=== PATIENT | female | born 1985 | race Hispanic/Latino ===

== ENCOUNTER 2018-04-22 15:09 | Emergency (ER) | payer OTHER ==
[2018-04-22 15:28] VITALS: BP 129/82; PULSE 76; RESP 16; TEMP 98.3; O2SAT 100
--- NOTE | 2018-04-22 17:30 | ED PDOC ---
Lower Extremity Pain/Injury Time Seen by Provider: 04/22/18 15:39 Chief Complaint (Nursing): Lower Extremity Problem/Injury Chief Complaint (Provider): Right lateral foot pain x 5 days History Per: Patient History/Exam Limitations: no limitations Onset/Duration Of Symptoms: Days Current Symptoms Are (Timing): Still Present Severity: Moderate Pain Scale Rating Of: 6 Additional Complaint(s): 32 yo female with history of TOS presents for evaluation of right foot pain. PT was on vacation and twisted her right foot. Pt reports lateral side foot pain. PT states that she got an bradley wrap and continued to walk on vacation until she returned this morning. No swelling today but states it was swollen initially. Pt has been taking tylenol for pain. Pt does not want anything in the ER. Past Medical History Reviewed: Historical Data, Nursing Documentation, Vital Signs Vital Signs: Last Vital Signs Temp 98.3 F 04/22/18 15:26 Pulse 76 04/22/18 15:26 Resp 16 04/22/18 15:26 BP 129/82 04/22/18 15:26 Pulse Ox 100 04/22/18 15:26 - Medical History PMH: No Chronic Diseases - Surgical History Surgical History: No Surg Hx - Family History Family History: States: No Known Family Hx - Living Arrangements Living Arrangements: With Family - Allergies Allergies/Adverse Reactions: Allergies Allergy/AdvReac Type Severity Reaction Status Date / Time No Known Allergies Allergy Verified 04/22/18 15:26 Review of Systems ROS Statement: Except As Marked, All Systems Reviewed And Found Negative Constitutional: Negative for: Fever, Chills Musculoskeletal: Positive for: Foot Pain Skin: Negative for: Bruising Physical Exam - Reviewed Nursing Documentation Reviewed: Yes Vital Signs Reviewed: Yes - Physical Exam Appears: Positive for: Well, Non-toxic, No Acute Distress Head Exam: Positive for: ATRAUMATIC, NORMAL INSPECTION, NORMOCEPHALIC Skin: Positive for: Normal Color (No erythema, no ecchymosis on the foot ), Warm , DRY Eye Exam: Positive for: Normal appearance ENT: Positive for: Normal ENT Inspection Neck: Positive for: Normal Respiratory: Negative for: Accessory Muscle Use, Respiratory Distress Pulses-Dorsalis Pedis (R): 2+ Pulses-Post. Tibialis (R): 2+ Back: Positive for: Normal Inspection Extremity: Positive for: Normal ROM, Tenderness (Lateral foot, 5th metatarsal on the right foot ). Negative for: Deformity, Swelling Neurologic/Psych: Positive for: Alert - ECG O2 Sat by Pulse Oximetry: 100 Pulse Ox Interpretation: Normal Medical Decision Making Medical Decision Making: Possible fracture 5th metatarsal. Podiatry consult completed . Disposition - Clinical Impression Clinical Impression: Foot injury - Patient ED Disposition Is Patient to be Admitted: No Counseled Patient/Family Regarding: Diagnosis, Need For Followup - Disposition Referrals: Cindi Hendricks DPM [Staff Provider] - Disposition: Routine/Home Disposition Time: 17:27 Condition: GOOD Instructions: Foot Sprain (DC)
--- NOTE | 2018-04-22 17:55 | RAD ---
Date of service: 04/22/2018 PROCEDURE: Right Foot Radiographs. HISTORY: pain, twisted foot 5 days ago COMPARISON: None. FINDINGS: BONES: No interval acute cardiopulmonary disease appreciated. JOINTS: Normal. SOFT TISSUES: Normal. OTHER FINDINGS: None. IMPRESSION: Unremarkable right foot radiographs.
--- NOTE | 2018-04-22 18:24 | CP.PCM.CON ---
History of Present Illness - History of Present Illness History of Present Illness: Podiatry consult note for Dr. Hendricks, 32 yo female with history of TOS was seen in the ED for pain in the right foot. Patient is AAO x3 and in no acute distress. Patient states she had twisted her right foot inwards while on vacation in [place] 5 days ago. Patient rates her pain as minimal to moderate. Patient states it was initially very swollen, and has been icing and elevating right lower extremity. Pt states swelling has improved however pain has remained about the same. States she takes tylenol every 4-6 hours. States she had wrapped the right foot with FRANCISCO JAVIER bandage. Patient states she continued to walk on it after the injury. Denies any other pedal complains. Denies f/n/v/sob. Medical history: Thoracic outlet syndrome, and hyperlipidemia Surgical history: right shoulder surgery Allergies: NKFDA Social history: denies smoking, occasional drinker, denies recreational drugs. Past Patient History - Past Social History Smoking Status: Never Smoked - MUSCULOSKELETAL/RHEUMATOLOGICAL Other/Comment: THORACIC OUTLET SYNDROME, HERNIATIONS C3-C4, COLLAR BONE CYST - PSYCHIATRIC Hx Substance Use: No - SURGICAL HISTORY Hx Surgeries: Yes Other/Comment: CYST REMOVAL- COLLAR BONE, 3 RIGHT SHOULDER SURGERY - ANESTHESIA Hx Anesthesia: Yes Hx Anesthesia Reactions: No Hx Malignant Hyperthermia: No Meds Allergies/Adverse Reactions: Allergies Allergy/AdvReac Type Severity Reaction Status Date / Time No Known Allergies Allergy Verified 04/22/18 15:26 Physical Exam - Constitutional Appears: Well, Non-toxic, No Acute Distress - Head Exam Head Exam: ATRAUMATIC, NORMOCEPHALIC - Extremities Exam Additional comments: Right lower extremity exam: vascular: DP/PT 2/4, CFT <3 secs x5, temperature gradient warm to warm from proximal leg to toes, no edema or erythema noted Derm: no open lesions, no ecchymosis, no edema, no erythema noted, no clinical signs of infection Neuro: [facility]: pain on palpation to the base of the fifth metatarsal; no pain on palpation to the insertion of achilles tendon, no pain on palpation to the ankle joint, medial or lateral malleolus, no pain with calf squeeze, pain along the medial band of plantar fascia, pain with STJ Active and passive ROM, minimal pain with dorsiflexion and plantarflexion of the ankle joint. - Neurological Exam Neurological exam: Alert, Oriented x3 - Psychiatric Exam Psychiatric exam: Normal Affect, Normal Mood - Skin Skin Exam: Normal Color Results - Vital Signs Recent Vital Signs: Last Vital Signs Temp 98.3 F 04/22/18 15:26 Pulse 76 04/22/18 15:26 Resp 16 04/22/18 15:26 BP 129/82 04/22/18 15:26 Pulse Ox 100 04/22/18 17:34 Assessment & Plan - Assessment and Plan (Free Text) Assessment: 32 yo female with TOS and hyperlipidemia seen in the ED for pain at the base of the right fifth metatarsal; hairline type fracture of the base of the right fifth metartasal. Plan: Patient seen and evaluated History and plan discussed in detail with the attending, Dr. Hendricks Chart and x-rays reviewed Right foot x-ray revealed a hairline fracture of the base of right fifth metatarsal, no displacement no dislocation noted. Educated patient on the etiology of the fracture and conservative treatment Right foot wrapped with FRANCISCO JAVIER bandage Surgical shoe dispensed Crutches dispensed; patient crutch trained Patient to remain NWB to the right lower extremity Patient to take OTC tylenol for pain prn Patients question and concerns answered Patient advised to follow up with Dr. Hendricks in her office Thank you for the consult.
== END 2018-04-22 17:43 | disposition home or self-care (01) ==
LOC: H.ER 15:09
DX: S99.921A Unspecified injury of right foot, initial encounter (principal); X50.9XXA Other and unspecified overexertion or strenuous movements or postures, initial encounter; Y92.89 Other specified places as the place of occurrence of the external cause; E78.5 Hyperlipidemia, unspecified

== ENCOUNTER 2018-11-23 10:03 | Emergency (ER) | payer OTHER ==
[2018-11-23 10:32] VITALS: BP 110/75; RESP 18; TEMP 98; O2SAT 99
--- NOTE | 2018-11-23 10:36 | ED PDOC ---
Upper Extremity Pain/Injury Time Seen by Provider: 11/23/18 10:24 Chief Complaint (Nursing): Upper Extremity Problem/Injury History Per: Patient Onset/Duration Of Symptoms: Days (1) Current Symptoms Are (Timing): Still Present Quality: Aching Severity: Mild Exacerbating Factor(s): Movement Additional Complaint(s): Slipped and fell last night with arms extended. C/o pain hands bila, elbows bilat and shoulders bilat. Past Medical History Vital Signs: Last Vital Signs Temp 98.0 F 11/23/18 10:23 Pulse 92 H 11/23/18 10:23 Resp 18 11/23/18 10:23 BP 110/75 11/23/18 10:23 Pulse Ox 99 11/23/18 10:23 - Medical History Other PMH: Thoracic outlet syndrome right side - Family History Family History: States: Unknown Family Hx - Home Medications Home Medications: Ambulatory Orders Medication Instructions Recorded traMADol [Ultram] 50 mg PO Q8 #10 tab 11/23/18 - Allergies Allergies/Adverse Reactions: Allergies Allergy/AdvReac Type Severity Reaction Status Date / Time No Known Allergies Allergy Verified 04/22/18 15:26 Review of Systems Constitutional: Negative for: Fever Musculoskeletal: Positive for: Shoulder Pain, Arm Pain, Hand Pain Neurological: Negative for: Weakness, Numbness - ECG O2 Sat by Pulse Oximetry: 99 Disposition - Clinical Impression Clinical Impression: Elbow fracture, right - Patient ED Disposition Is Patient to be Admitted: No Counseled Patient/Family Regarding: Studies Performed, Diagnosis, Need For Followup, Rx Given - Disposition Referrals: Non [facility] Provider, [Primary Care Provider] - Laith Qureshi MD [Staff Provider] - Disposition: Routine/Home Disposition Time: 11:32 Condition: FAIR Prescriptions: traMADol [Ultram] 50 mg PO Q8 #10 tab Instructions: Elbow Fracture (DC) Forms: [employer] (Micronesian)
--- NOTE | 2018-11-23 11:26 | RAD ---
Date of service: 11/23/2018 PROCEDURE: Bilateral elbows HISTORY: injury COMPARISON: No prior. TECHNIQUE: 3 views right and left elbows obtained. FINDINGS: BONES: There is a appears to be a minimally displaced fracture of the right radial head. No definitive fracture left elbow JOINTS: Normal. No osteoarthritis. SOFT TISSUES: Normal. JOINT EFFUSION: None. OTHER FINDINGS: None IMPRESSION: There appears to be a minimally displaced fracture right radial head.
--- NOTE | 2018-11-23 11:29 | RAD ---
Date of service: 11/23/2018 PROCEDURE: Radiographs of both shoulders HISTORY: Injury COMPARISON: No prior. FINDINGS: BONES: Right shoulder: Normal. No fracture. Left shoulder: Normal. No fracture. JOINTS: Right shoulder: Normal. No significant osteoarthritic changes. Left shoulder: Normal. No significant osteoarthritic changes. SOFT TISSUES: Right shoulder: Grossly unremarkable. Right shoulder: Grossly unremarkable. OTHER FINDINGS: Note made of several tiny radiopaque densities that appear to represent metallic surgical clips overlying the right lung apex. Clinic correlation with history recommended IMPRESSION: No evidence of acute displaced fracture nor dislocation
--- NOTE | 2018-11-23 11:42 | RAD ---
PROCEDURE: Bilateral hand radiographs. HISTORY: Injury COMPARISON: None. TECHNIQUE: 6 views obtained. FINDINGS: BONES: Right Hand: Normal. No osteoarthritic changes. Left Hand: Normal. No osteoarthritic changes. JOINTS: Right Hand: Normal. Left Hand: Normal. SOFT TISSUES: Right Hand: Normal. Left Hand: Normal. OTHER FINDINGS: None. IMPRESSION: Normal radiographs of the hands.
[2018-11-23 12:03] VITALS: PULSE 83
== END 2018-11-23 11:33 | disposition home or self-care (01) ==
LOC: SUPCPDRO 10:03 → H.ER 10:03
DX: S52.501A Unspecified fracture of the lower end of right radius, initial encounter for closed fracture (principal); W19.XXXA Unspecified fall, initial encounter; Y92.89 Other specified places as the place of occurrence of the external cause